=== PATIENT | female | born 1945 | race Caucasian/White ===

== ENCOUNTER → 2016-08-26 | Outpatient (CLI) | payer MEDICARE ==
[~2016-08-26] VITALS: Ht 157.5 cm; Wt 69.6 kg
[~2016-08-26] MED LIST: AMIT10 PO; CHLORHEXIDINE GLUCONATE 2 % 1 PACK (2 CLOTHS) TOPICAL PRN; DIAZ5TAB PO; HYDR-3583 PO; INSULIN HUMAN REGULAR 1,000 UNITS/10 ML VIAL SQ PRN; LACT10SO PO; LACTATED RINGER'S 1000 ML IV PRN; LEVO75TA3 PO; LEVO88TA24 PO; LISI-360 PO; LORTA10 PO; LOSA50TA PO; METOPROLOL TARTRATE 25 MG TAB PO PRN; MULT-135 PO; ONABOTULINUMTOXINA INJ 100 UNITS/VIAL ONE; PANT40TA3 PO; PROPOFOL 200 MG/20 ML AMP IV ONE; PROT40TA PO; SODIUM CHLORID 0.9% 500 ML IV PRN; STOO100T PO; TAB-TAB PO
[2016-08-26 12:17] VITALS: BP 167/92; PULSE 80; RESP 16; TEMP 98.3; O2SAT 96
[2016-08-26 15:15] VITALS: TEMP 97.4
--- NOTE | 2016-08-26 15:16 | PD.PROCEDR ---
GI Procedure PROCEDURE PERFORMED EGD with savory dilation over guidewire and Botox injection INDICATION FOR PROCEDURE Dysphagia and choking PROCEDURE: The procedure, risks and benefits were discussed with Ms. Owens and informed consent was obtained. Anesthesia sedated her with Diprivan. She was placed in the left lateral decubitus position. EGD: The Pentax videoscope was introduced through the oropharynx and advanced to the second portion of the duodenum under direct visualization. Retroflexion was performed in the stomach. FINDINGS: The esophagus this appeared to be unremarkable except for lower esophageal spasms as noted on a recent barium swallow and as such this was dilated with a savory dilator 17 mm over a guidewire post dilatation view was satisfactory with no rent then 100 units of Botox were injected into this area into 4 quadrants The stomach this was unremarkable except for a noted prior surgery of a Zander fundoplication otherwise gastric mucosa was normal The duodenum this was normal ESTIMATED BLOOD LOSS: None SPECIMENS REMOVED: None COMPLICATIONS: None IMPRESSION: Dysphagia Lower esophageal spasms PLAN: Patient advised to chew food well Continue with current precautionary measures Follow-up in clinic Min Moore MD August 26, 2016 15:16
[2016-08-26 15:25] VITALS: BP 140/73; PULSE 78; RESP 16; O2SAT 97
--- NOTE | 2016-08-27 17:42 | EKG ---
Date Performed: 08/26/2016 Time Performed: 12:00:51 PTAGE: 70 years EKG: Sinus rhythm INFERIOR MYOCARDIAL INFARCTION , PROBABLY OLD ABNORMAL ECG Compared to PREVIOUS TRACING , T-waves are noted in lead AVF, suggesting inferior infarction. This is new compared to prior study. Clinical correlation is recommended. PREVIOUS TRACIN08/17/2013 11.50 DOCTOR: Sander Elizabeth Interpretating Date/Time 08/27/2016 17:41:23
== END ==
LOC: HEND 11:21
PROVIDERS: ATTEND Internal Medicine Gastroenterology
DX: K22.4 Dyskinesia of esophagus (principal); Z01.810 Encounter for preprocedural cardiovascular examination
CPT/HCPCS: 43248; 93005; C1769; J0585

== ENCOUNTER 2017-09-10 11:37 | Emergency (ER) | payer MEDICARE ==
[~2017-09-10] VITALS: Ht 157.5 cm; Wt 63.6 kg
[~2017-09-10 11:37] MED LIST changes: -AMIT10 PO; -CHLORHEXIDINE GLUCONATE 2 % 1 PACK (2 CLOTHS) TOPICAL PRN; -INSULIN HUMAN REGULAR 1,000 UNITS/10 ML VIAL SQ PRN; -LACTATED RINGER'S 1000 ML IV PRN; -LEVO88TA24 PO; -LISI-360 PO; -LORTA10 PO; -METOPROLOL TARTRATE 25 MG TAB PO PRN; -ONABOTULINUMTOXINA INJ 100 UNITS/VIAL ONE; -PROPOFOL 200 MG/20 ML AMP IV ONE; -PROT40TA PO; -SODIUM CHLORID 0.9% 500 ML IV PRN; -STOO100T PO; -TAB-TAB PO
[2017-09-10 11:45] VITALS: BP 168/87; PULSE 59; RESP 16; TEMP 98.7; O2SAT 96
[2017-09-10] MEDS ORDERED: MULT-65 PO (12:10)
[2017-09-10] MEDS ORDERED: ARIP1TAB11 PO (12:10)
[2017-09-10] MEDS ORDERED: D200CAP PO (12:10)
[2017-09-10] MEDS ORDERED: ESCI20TA PO (12:10)
[2017-09-10] MEDS ORDERED: TRAZ50TA12 PO (12:10)
[2017-09-10] MEDS ORDERED: GABA300C5 PO (12:10)
[2017-09-10] MEDS ORDERED: MELO7.5T27 PO (12:10)
[2017-09-10] MEDS ORDERED: METO25TA3 PO (12:10)
[2017-09-10] MEDS ORDERED: LORA0.5T PO (12:10)
--- NOTE | 2017-09-10 14:44 | PD ---
HPI Chief Complaint: Dizziness Time Seen by Provider: 12:52 Travel History International Travel<30 days: No Contact w/Intl Traveler<30days: No Traveled to known affect area: No History of Present Illness HPI This patient complains of a room spinning dizziness. Started this morning when she stretched her neck and put her head back. She gets it every 2-3 months. Feels the same. The reason she called ambulance is because the initial vertigo resolved and then she went to the [employer]. When they laid her head back to wash her hair it returned and she was not able to drive due to her dizziness. No headache or head injury or fever. No vomiting. Symptom severity is moderate. Duration 1 hour. No alleviating factors. Symptoms exacerbated by head movements PFSH Past Medical History Anemia: Yes Arthritis: Yes Bipolar Disorder: Yes Anxiety: Yes Depression: Yes Heart Rhythm Problems: Yes Cancer: Yes (uterine cancer and bcc, lung ) Cardiovascular Problems: No High Cholesterol: Yes Diabetes: No Diminished Hearing: No Endocrine: Yes Gastrointestinal Disorders: Yes (reflux ulcers) GERD: Yes Genitourinary: Yes (hx of kidney stones) Hepatitis: Yes (type a) Hiatal Hernia: Yes Hypertension: Yes Immune Disorder: No Inguinal Hernia: Yes (REPAIRED) Implanted Vascular Access Dvce: No Insomnia: Yes Musculoskeletal: Yes (back and neck problems arthritis) Neurologic: No Psychiatric: No Reproductive: No Respiratory: No Immunizations Current: Yes Thyroid Disease: Yes (Hypo-) Ulcer: Yes Tetanus Vaccination: < 5 Years Influenza Vaccination: Yes ?: Not Menopausal: Yes Ovarian Cysts: Yes Past Surgical History Abdominal Surgery: Yes (double hernia repair cholecystectomy) Cholecystectomy: Yes Endocrine Surgery: Yes (TONSILECTOMY) Eye Surgery: Yes (cataract removal right eye) Genitourinary Surgery: Yes (lithotripsy) Gynecologic Surgery: Yes (x2 ovarian cyst removed hysterectomy) Hysterectomy: Yes Joint Replacement: Yes (Rt. knee ) Oral Surgery: Yes (t and a) Pacemaker: No Tonsillectomy: Yes (adenoids) Other Surgery: Yes (Lung CA RLL ) Social History Alcohol Use: Yes (Twice a week) Tobacco Use: No Substance Use: No Allergies-Medications (Allergen,Severity, Reaction): Coded Allergies: MRI PRECAUTION (Verified Allergy, Severe, Contrast allergy, 09/10/17) adhesive (Verified Allergy, Intermediate, Skin irritation, 09/10/17) iodine (Verified Allergy, Intermediate, Hives, 09/10/17) potassium iodide (Verified Allergy, Intermediate, Hives, 09/10/17) povidone-iodine (Verified Allergy, Intermediate, Hives, 09/10/17) sodium iodide (Verified Allergy, Intermediate, Hives, 09/10/17) sodium iodide (Verified Allergy, Intermediate, Hives, 09/10/17) Reported Meds & Prescriptions Reported Meds & Active Scripts Active Reported D3 Super Strength (Cholecalciferol) 2,000 Unit Cap 2,000 Units PO DAILY Trazodone (Trazodone HCl) 50 Mg Tab 50 Mg PO HS PRN Multi-Vitamin Daily (Multiple Vitamin) 1 Tab Tab 1 Tab PO DAILY Metoprolol Tartrate 25 Mg Tab 25 Mg PO BID Meloxicam 7.5 Mg Tab 7.5 Mg PO DAILY Lorazepam 0.5 Mg Tab 0.5 Mg PO DAILY PRN Gabapentin 300 Mg Cap 300 Mg PO TID Escitalopram (Escitalopram Oxalate) 20 Mg Tab 20 Mg PO DAILY Aripiprazole 5 Mg Tab 5 Mg PO DAILY Pantoprazole (Pantoprazole Sodium) 40 Mg Tab 40 Mg PO BIDAC Losartan (Losartan Potassium) 50 Mg Tab 50 Mg PO BID Levothyroxine (Levothyroxine Sodium) 75 Mcg Tab 75 Mcg PO DAILY Lactulose Liq (Lactulose) 10 Gm/15 Ml Soln 30 Ml PO BID Hydrocodone-Acetaminophen 10-325 mg Tab 1 Tab PO Q12HR PRN Review of Systems General / Constitutional: No: Fever Eyes: No: Visual changes HENT: Positive: Vertigo, No: Headaches Cardiovascular: No: Chest Pain or Discomfort Respiratory: No: Shortness of Breath Gastrointestinal: No: Abdominal Pain Genitourinary: No: Dysuria Musculoskeletal: No: Pain Skin: No Rash Neurologic: No: Weakness Psychiatric: No: Depression Endocrine: No: Polydipsia Hematologic/Lymphatic: No: Easy Bruising Physical Exam Narrative GENERAL: Well-nourished, well-developed patient in no apparent distress. SKIN: Focused skin assessment reveals no rash and nodules. Skin is Warm and dry. HEAD: Atraumatic. Normocephalic. EYES: Pupils equal and round. No scleral icterus. No injection or drainage. ENT: No nasal bleeding or discharge. Mucous membranes pink and moist. NECK: Trachea midline. No JVD. CARDIOVASCULAR: Regular rate and rhythm. No murmur appreciated. RESPIRATORY: No accessory muscle use. Clear to auscultation. Breath sounds equal bilaterally. GASTROINTESTINAL: Abdomen soft, non-tender, nondistended. Hepatic and splenic margins not palpable. MUSCULOSKELETAL: No obvious deformities. No clubbing. No cyanosis. No edema. NEUROLOGICAL: Awake and alert. No obvious cranial nerve deficits. Motor grossly within normal limits. Normal speech. PSYCHIATRIC: Appropriate mood and affect; insight and judgment normal. Data Data Last Documented VS Vital Signs Date Time Temp Pulse Resp B/P (MAP) Pulse Ox O2 Delivery O2 Flow Rate FiO2 09/10/17 11:45 98.7 59 16 168/87 (114) 96 MDM Medical Decision Making Medical Screen Exam Complete: Yes Emergency Medical Condition: Yes Medical Record Reviewed: Yes Differential Diagnosis Vertigo, labyrinthitis, vasovagal episode Narrative Course I have reviewed the patient's electronic medical record. Patient is neurologically intact. No clinical suspicion of CVA This is a recurrent problem When I reevaluated her she feels fine while supine We ambulated her around the department and she did well Stable for outpatient follow-up Diagnosis Primary Impression: Benign positional vertigo Qualified Codes: H81.10 - Benign paroxysmal vertigo, unspecified ear Additional Instructions: Change positions slowly Consider meclizine if desired The patient was advised to follow up with their physician and return if they worsen. Med/Other Pt SpecificInfo: Other Disposition: 01 DISCHARGE HOME Condition: Stable Jemal Alejandre MD September 10, 2017 14:44
[2017-09-10 14:55] VITALS: BP 172/81; PULSE 58; RESP 14; O2SAT 98
== END 2017-09-10 14:55 | disposition home or self-care (01) ==
LOC: PHED 11:37
DX: H81.10 Benign paroxysmal vertigo, unspecified ear (principal); I10 Essential (primary) hypertension; E03.9 Hypothyroidism, unspecified; K21.9 Gastro-esophageal reflux disease without esophagitis; E78.00 Pure hypercholesterolemia, unspecified; F31.9 Bipolar disorder, unspecified; F41.8 Other specified anxiety disorders; Z86.79 Personal history of other diseases of the circulatory system; Z87.19 Personal history of other diseases of the digestive system; Z87.39 Personal history of other diseases of the musculoskeletal system and connective tissue
CPT/HCPCS: 99281